=== PATIENT | male | born 1940 | race Caucasian/White ===

== ENCOUNTER 2017-12-13 01:08 | Inpatient (IN) | payer OTHER, MEDICARE ==
[2017-12-13] VITALS (7 sets, daily range): BP systolic 106–127; BP diastolic 56–71; PULSE 56–76; RESP 12–18; TEMP 97.9–98.7; O2SAT 96–99
[2017-12-13] MEDS ORDERED: ceFAZolin 2 GM PREMIX 50 ML ONE (01:10)
[2017-12-13] MEDS ORDERED: DIPHTH/TETANUS/ACEL PERTUSSIS (BOOSTER) 0.5 ML VIAL/PFS IM ONE (01:10)
[2017-12-13 01:30] LABS: AUTOMATED NEUTROPHIL # 3.7 TH/MM3 (1.8-7.7); BASOPHIL % 0.2 % (0.0-2.0); EOSINOPHIL # 0.1 TH/MM3 (0-0.4); EOSINOPHIL % 2.3 % (0.0-4.0); HEMATOCRIT 33.8 % (39.0-51.0); HEMOGLOBIN 11.6 GM/DL (13.0-17.0); LYMPH % 31.3 % (9.0-44.0); LYMPHOCYTE # 1.9 TH/MM3 (1.0-4.8); MEAN CELL VOLUME 90.2 FL (80.0-100.0); MEAN CORPUSCULAR HEMOGLOBIN 31.1 PG (27.0-34.0); MEAN CORPUSCULAR HGB CONC 34.4 % (32.0-36.0); MEAN PLATELET VOLUME 8.5 FL (7.0-11.0); MONO % 6.2 % (0.0-8.0); MONOCYTE # 0.4 TH/MM3 (0-0.9); PLATELET COUNT 197 TH/MM3 (150-450); RED BLOOD COUNT 3.74 MIL/MM3 (4.50-5.90); RED CELL DISTRIBUTION WIDTH 13.3 % (11.6-17.2); WHITE BLOOD COUNT 6.1 TH/MM3 (4.0-11.0)
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
[2017-12-13] MEDS ORDERED: IOHEXOL 350 MG/ML 10 ML VIAL (for RAD DIAG) IVCONTRAST ONE (01:43)
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
[2017-12-13 01:45] LABS: PROTHROMBIN TIME - PATIENT 10.6 SEC (9.8-11.6)
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
[2017-12-13] MEDS ORDERED: LIDOCAINE 2%/EPINEPHrine 1:100,000 20ML MDV NERV BLOCK ONE (03:30)
[2017-12-13] MEDS ORDERED: ACETAMINOPHEN 325 MG TAB PO PRN (06:00)
[2017-12-13] MEDS ORDERED: ENALAPRILAT 1.25 MG/ML VIAL IV PUSH PRN (08:00)
[2017-12-13] MEDS ORDERED: MORPHINE SULFATE 4 MG/ML INJ IV PUSH PRN (08:00)
[2017-12-13] MEDS ORDERED: CYCLOBENZAPRINE HCL 10 MG TAB PO PRN (08:00)
[2017-12-13] MEDS ORDERED: ACETAMINOPHEN/HYDROcodone 325 MG/5 MG TAB PO PRN (08:00)
[2017-12-13] MEDS ORDERED: SODIUM CHLORIDE 0.9% FLUSH 10 ML FLUSH IV FLUSH PRN (08:00)
[2017-12-13] MEDS ORDERED: ONDANSETRON ODT 4 MG TAB PO PRN (08:15)
[2017-12-13] MEDS: ACETAMINOPHEN/HYDROcodone 325 MG/5 MG TAB PO PRN ×2 (08:17→21:12)
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
[2017-12-13] MEDS: SODIUM CHLOR 0.9% 1000 ML INJ 1,000 ML IV SCH ×2 (11:59→18:00)
[2017-12-13] MEDS: PANTOPRAZOLE SODIUM 40 MG VIAL IVP SCH (11:59)
[2017-12-13] MEDS: MULTIVITAMIN INJ 10 ML, THIAMINE INJ 100 MG, FOLIC ACID INJ 1 MG in SODIUM CHLORID 0.9%... IV SCH (12:12)
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
[2017-12-13] MEDS ORDERED: CITA10TA4 PO (19:56)
[2017-12-13] MEDS ORDERED: ASPI-516 CHEW (19:56)
[2017-12-13] MEDS ORDERED: CYAN1TAB24 (19:56)
[2017-12-13] MEDS ORDERED: PRAV40TA2 PO (19:56)
[2017-12-13] MEDS ORDERED: METO-426 PO (19:56)
[2017-12-13] MEDS ORDERED: ARIC23TA PO (19:56)
[2017-12-13] MEDS ORDERED: LEVO25TA4 PO (19:56)
[2017-12-13] MEDS ORDERED: PERI PO (20:38)
[2017-12-13] MEDS ORDERED: MAGN30S PO (20:38)
[2017-12-13] MEDS ORDERED: WALKER WHEELS/F1 MIS (20:39)
[2017-12-13] MEDS: MAGNESIUM HYDROXIDE SUSP 30 ML CUP PO SCH (21:00)
[2017-12-13] MEDS: DOCUSATE SODIUM 50 MG/SENNA 8.6 MG TAB PO SCH (21:00)
[2017-12-14 00:24] VITALS: BP 119/66; PULSE 58; RESP 16; TEMP 98; O2SAT 95
[2017-12-14] MEDS: SODIUM CHLOR 0.9% 1000 ML INJ 1,000 ML IV SCH ×2 (03:24→12:24)
[2017-12-14 04:00] VITALS: BP 125/63; PULSE 53; RESP 16; TEMP 97.6; O2SAT 96
[2017-12-14] MEDS ORDERED: LEVOTHYROXINE SODIUM 25 MCG TAB PO SCH (07:44)
[2017-12-14] MEDS ORDERED: PILL SPLITTER OTHER PRN (07:45)
[2017-12-14 08:00] VITALS: BP 134/67; PULSE 62; RESP 20; TEMP 96.6; O2SAT 96
[2017-12-14] MEDS: DOCUSATE SODIUM 50 MG/SENNA 8.6 MG TAB PO SCH (08:13)
[2017-12-14] MEDS: MAGNESIUM HYDROXIDE SUSP 30 ML CUP PO SCH (08:13)
[2017-12-14] MEDS: PANTOPRAZOLE SODIUM 40 MG VIAL IVP SCH (08:14)
[2017-12-14] MEDS ORDERED: PRAVASTATIN SOD 40 MG TAB PO SCH (09:00)
[2017-12-14] MEDS ORDERED: CITALOPRAM HYDROBROMIDE 20 MG TAB PO SCH (09:00)
[2017-12-14] MEDS: MULTIVITAMIN INJ 10 ML, THIAMINE INJ 100 MG, FOLIC ACID INJ 1 MG in SODIUM CHLORID 0.9%... IV SCH (09:12)
[2017-12-14] MEDS ORDERED: CODE30TA2 PO (11:53)
[2017-12-14 12:00] VITALS: BP 128/61; PULSE 68; RESP 20; TEMP 97.5; O2SAT 97
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
[2017-12-14 15:32] VITALS: BP 129/61; PULSE 59; RESP 20; TEMP 97; O2SAT 98
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
[2017-12-14 16:00] VITALS: BP 129/61; PULSE 66; RESP 20; TEMP 97; O2SAT 97
[2017-12-14] MEDS ORDERED: DONEPEZIL HCL 23 MG TAB PO SCH (21:00)
== END 2017-12-14 18:31 | disposition home health service (06) | DRG 605 ==
LOC: NEPI 01:08 → NEDA 05:00 → EDBD 07:56 → OBSVTOIN 07:56 → NEPGCP 11:37
PROVIDERS: ADMIT Surgery; ATTEND Surgery
PROC: 0HQGXZZ Repair Left Hand Skin, External Approach (ICD-10-PCS; principal; 2017-12-13)
DX: S00.83XA Contusion of other part of head, initial encounter (principal); S61.412A Laceration without foreign body of left hand, initial encounter; F03.90 Unspecified dementia, unspecified severity, without behavioral disturbance, psychotic disturbance, mood disturbance, and anxiety; M54.9 Dorsalgia, unspecified; I10 Essential (primary) hypertension; E03.9 Hypothyroidism, unspecified; R60.0 Localized edema; V50.5XXA Driver of pick-up truck or van injured in collision with pedestrian or animal in traffic accident, initial encounter; Y92.410 Unspecified street and highway as the place of occurrence of the external cause; Z79.82 Long term (current) use of aspirin; Z23 Encounter for immunization
CPT/HCPCS: 70450; 70486; 71045; 71260; 72125; 72129; 72170; 73090; 73130; 74177; 80048; 85025; 85610; 85730; 86850; 86900; 86901; 90715; C9113; J0690; J3411; J7030; J7040; Q9967